=== PATIENT | female | born 1960 | race Caucasian/White ===

== ENCOUNTER 2016-11-24 07:25 | Day surgery (SDC) | payer BC ==
[2016-11-24] VITALS (8 sets, daily range): BP systolic 102–124; BP diastolic 54–74
[~2016-11-24] VITALS: Ht 162.6 cm; Wt 80.3 kg
[~2016-11-24 07:25] MED LIST: ALEVE220 MG PO; CIPROFLOXACN500 MG PO; ESTRACE2 M1 OR; HEMORRHOIDAL RE; LISINOP/HCTZ1 TAB PO; LISINOPRIL10 MG PO; MAXZIDE-2537.5 MG/TA PO; NEXIUM40 M1 PO; OMEPRAZOLE10 MG PO; PRILOSEC20 MG/CAP PO; PROCTOFOAM1 AER RE; STOOL SOFTE1 OR; XANAX0.5 MG PO
[2016-11-24] MEDS ORDERED: ATENOLOL25 MG PO (07:39)
[2016-11-24] MEDS ORDERED: PERCOCET 5/325M1 TAB PO (11:38)
--- NOTE | 2016-11-24 13:02 | NUR ---
REPORT RECEIVED FROM LEXIE IN OR, PT ARRIVED ON UNIT VIA STRETCHER AND TRANSFERRED TO BED, ALERT AND ORIENTED X 3, C/O MID-STERNAL PAIN AT THIS TIME. PUNCTURES X 4 TO ABD WITH DRESSINGS CDI, ORIENTED TO ROOM AND CAPRICE ONTIVEROS, VITAL SIGNS BEING MEASURED.
--- NOTE | 2016-11-24 18:02 | NUR ---
DR BOGGS REPORTED HE WILL ENTER D/C ORDERS FOR PT TO GO HOME ON 12/26/14.
--- NOTE | 2016-11-24 19:15 | NUR ---
PATIENT RESTING IN BED AT THIS TIME-AWAKE ALERT AND ORIENTEDX3. PATIENT WITH IV SITE TO LEFT AC-SITE APPEARS HEALTHY AT THIS TIME. PATIENT C/O SORE SCRATCHY THROAT-PROVIDED WITH ICE CHIPS AND WELSH ICE FOR COMFORT. MULTIPLE VISITORS AT BEDSIDE. SAFETY PRECAUTIONS REINFORCED. CALL LIGHT IN REACH. WILL CONT TO MONITOR.
--- NOTE | 2016-11-24 21:30 | NUR ---
PATIENT C/O POST-OP PAIN 5/10-MEDICATED WITH PERCOCET 5/325MG PO FOR PAIN. PATIENT RESTING IN BED. PATIENT WITH DRESSINGX4 TO ABD-CLEAN DRY AND INTACT WITH NO DRAINAGE NOTED. PATIENT DENIES ANY DIFFICULTY WITH VOIDING BUT IS CURRENTLY TAKING CIPRO PO FOR UTI. STATES THAT SHE HAD BM BEFORE COMING TO THE HOSPITAL. ABD IS SOFT WITH BS PRESENT. PATIENT TAKING PO FLUIDS WELL. TOLERATED WELL. SAFETY PRECAUTIONS REINFORCED. CALL LIGHT IN REACH. WILL CONT TO MONITOR.
--- NOTE | 2016-11-24 23:52 | NUR ---
APPEARS SLEEPING WITH SISTER AT BEDSIDE RESTING ON COT PROVIDED. CALL LIGHT IN REACH. WILL CONT TO MONITOR.
[2016-11-25 00:31] VITALS: BP 91/54
--- NOTE | 2016-11-25 04:13 | NUR ---
PATIENT AWAKE-STATES THAT SHE HASN'T SLEPT MUCH TONIGHT-ON AND OFF. PATIENT PROVIDED WOITH JELLO AND SOFT DRINK PER PATIENT REQUEST. CALL LIGHT IN REACH. WILL CONT TO MONITOR.
[2016-11-25 04:25] VITALS: BP 88/54
[2016-11-25 06:01] VITALS: BP 99/59
--- NOTE | 2016-11-25 07:00 | NUR ---
SHIFT CHANGE REPORT FROM DIANNA PT AWAKE, ALERT, ORIENTED AND TALKATIVE, C/O MILD SORE PAIN TO ABDOMEN WHICH IS BEING CONTROLLED BY ANALGESICS, STATED SHE HAD A RESTLESS NIGHT AND IS READY TO GO HOME TODAY.
[2016-11-25 08:43] VITALS: BP 106/68
--- NOTE | 2016-11-25 10:28 | NUR ---
Discharge instructions given. Patient verbalizes understanding of same. Discharged in stable condition via Wheelchair to Home with family. All belongings sent with pt.
== END 2016-11-25 10:24 | disposition home or self-care (01) | DRG 419 ==
LOC: ORM 07:25 → MS2 12:13 → ORM 11-25 10:24
PROVIDERS: ATTEND Surgery
PROC: 0FT44ZZ Resection of Gallbladder, Percutaneous Endoscopic Approach (ICD-10-PCS; principal; 2016-11-24)
DX: K81.1 Chronic cholecystitis (principal); I10 Essential (primary) hypertension
CPT/HCPCS: J2710

== ENCOUNTER 2018-01-18 05:59 | Day surgery (SDC) | payer BC ==
[~2018-01-18] VITALS: Ht 162.6 cm; Wt 86.2 kg
[~2018-01-18 05:59] MED LIST changes: +ATENOLOL25 MG PO; +CALCIUM + D PO; +PERCOCET 5/325M1 TAB PO
[2018-01-18 08:41] VITALS: BP 141/65
== END 2018-01-18 08:09 | disposition home or self-care (01) | DRG 951 ==
LOC: ENDO 05:59
PROVIDERS: ATTEND Surgery
PROC: 0DJD8ZZ Inspection of Lower Intestinal Tract, Via Natural or Artificial Opening Endoscopic (ICD-10-PCS; principal; 2018-01-18)
DX: Z12.11 Encounter for screening for malignant neoplasm of colon (principal); K57.30 Diverticulosis of large intestine without perforation or abscess without bleeding; K64.4 Residual hemorrhoidal skin tags; K64.8 Other hemorrhoids; K21.9 Gastro-esophageal reflux disease without esophagitis; I10 Essential (primary) hypertension; Z80.0 Family history of malignant neoplasm of digestive organs

== ENCOUNTER 2018-02-14 10:21 | Emergency (ER) | payer BC ==
[~2018-02-14] VITALS: Ht 162.6 cm; Wt 87.0 kg
[2018-02-14] MEDS ORDERED: VALTREX1 GM PO (10:52)
[2018-02-14] MEDS ORDERED: PREDNISONE10 MG PO (10:52)
[2018-02-14] MEDS ORDERED: OXYCOD/APAP1 TA1 PO (11:07)
[2018-02-14] MEDS ORDERED: FLEXERIL PO (11:09)
[2018-02-14 11:18] VITALS: BP 141/75
== END 2018-02-14 11:37 | disposition home or self-care (01) | DRG 74 ==
LOC: ED 10:21
DX: G51.0 Bell's palsy (principal); S16.1XXA Strain of muscle, fascia and tendon at neck level, initial encounter; X58.XXXA Exposure to other specified factors, initial encounter; Y92.009 Unspecified place in unspecified non-institutional (private) residence as the place of occurrence of the external cause

== ENCOUNTER 2018-06-14 10:21 | Observation (INO) | payer BC ==
[~2018-06-14] VITALS: Ht 162.6 cm; Wt 89.5 kg
[~2018-06-14 10:21] MED LIST changes: +FLEXERIL PO; +OXYCOD/APAP1 TA1 PO; +PREDNISONE10 MG PO; +VALTREX1 GM PO
--- NOTE | 2018-06-14 10:22 | NUR ---
PT TO ROOM VIA WHEELCHAIR.
--- NOTE | 2018-06-14 10:31 | NUR ---
PT STATES HAS BEEN HAVING LEFT SHOULDER AND LEFT ARM PAIN FOR TWO WEEKS, HURTS WORSE WITH UP AND DOWN MOVEMENT. THINKS IT MAY BE ROTATOR CUFF OR ARTHRITIS ACTING UP.
--- NOTE | 2018-06-14 10:40 | NUR ---
AFTER TAKING NITRO SL, PTS BLOOD PRESSURE DROPPED.
--- NOTE | 2018-06-14 10:45 | NUR ---
PT BLOOD PRESSURE DROPPED TO 63/47, NOTIFIED, PT PLACED IN [place], FLUIDS INFUSING, COOL CLOTH GIVEN.
[2018-06-14 10:51] LABS: HEMATOCRIT 45.9 % (37.0-47.0); HEMOGLOBIN 14.8 g/dl (12.0-16.0); IMMATURE GRANULOCYTES 0.4 % (0.0-5.0); MEAN CELL VOLUME 93.5 fL CALC (80.0-100.0); MEAN CORPUSCULAR HGB 30.1 pG CALC (26.0-32.0); MEAN CORPUSCULAR HGB CONC 32.2 g/L CALC (32.0-36.0); NEUT# 6.61 thou/uL (2.00-7.15); RED BLOOD COUNT 4.91 mill/uL (4.20-5.60); RED CELL DISTRI WIDTH 13.2 % (11.5-15.5)
[2018-06-14] MEDS ORDERED: CALCIU1 PO (10:54)
--- NOTE | 2018-06-14 10:59 | NUR ---
BLOOD PRESSURE INCREASING. PT STATES FEELS A LITTLE BETTER.
[2018-06-14 11:15] LABS: ANION GAP 17 (6-22 (CALC)); BUN 25 mg/dL (7-17); BUN/CREATININE RATIO 22 (12-20 (CALC)); CARBON DIOXIDE 28 mmol/l (22-30); CHLORIDE 99 mmol/l (95-108); CREATININE 1.1 mg/dL (0.5-1.0); GFR 51 ML/MIN (>=60 (CALC)); GFR FOR AFR.AMER. > 60 ML/MIN (>=60 (CALC)); POTASSIUM 4.4 mmol/l (3.5-5.1); SODIUM 140 mmol/l (137-146)
--- NOTE | 2018-06-14 11:26 | NUR ---
PT STATES FEELS MUCH BETTER, BLOOD PRESSURE HAS IMPROVED. NO CHEST PAIN AT THIS TIME
--- NOTE | 2018-06-14 12:15 | NUR ---
REPORT GIVEN TO MED SURG
--- NOTE | 2018-06-14 12:35 | NUR ---
PT TAKEN TO FLOOR PER W/C AND TELEMENTRY
--- NOTE | 2018-06-14 12:38 | NUR ---
PT ARRIVED TO FLOOR VIA W/C ACCOMPANIED BY ONE ER NURSE AND A FAMILY MEMBER; PT AMBULATED WITH STEADY GAIT TO THE RESTROOM; VOIDED 200CC CLEAR, YELLOW URINE; VITALS AND WT OBTAINED; A/O X4; C/O OF NO PAIN AT THE MOMENT; SKIN INTACT; LAST BM 06/14/18; BRACE TO RT ANKLE, STATES THINKS ITS "HEEL SPUR" STARTED WEARING BRACE THREE WEEKS AGO; LIVES ON A RANCH, SADDLE HOURSE DAILY; TELE IN PLACE; #20 LAC PATENT, SL; MEDICATED PER EMAR; SITTING UP SIDE OF BED EATING LUNCH AND VISITING WITH HER DAUGHTER; CALL ONTIVEROS IN REACH; SAFETY PRECAUTION REINFORCE; WILL CONTNUE TO MONITOR.
[2018-06-14 12:51] VITALS: BP 130/81
--- NOTE | 2018-06-14 15:39 | NUR ---
PT SITTING UP IN BED WATCHING TV; NO S/S OF DISTRESS NOTED; VOICE NO CONCERNS; DENIES ANY NEEDS AT THIS TIME; CALL ONTIVEROS IN REACH;
[2018-06-14 16:00] VITALS: BP 106/73
--- NOTE | 2018-06-14 19:40 | NUR ---
REPORT RECEIVED FROM KAITLYNN RED. PT RESTING IN BED, ALERT AND ORIENTED. PT FAMILY VISITING AT BEDSIDE. PT DENIES ANY CHEST PAIN, BUT STILL HAS LEFT SHOULDER PAIN. CALL LIGHT WITH IN REACH WILL CONTINUE TO MONITOR
[2018-06-14 20:00] VITALS: BP 107/76
--- NOTE | 2018-06-14 23:10 | NUR ---
PT RESTING IN BED. PT STATES HER PAIN IN HER LEFT SHOULDER IS FEELING A LITTLE BETTER AFTER REPOSITIONING. BROUGHT PT A WARM PACK. SAFETY PRECAUTIONS IN PLACE WILL CONTINUE TO MONITOR.
[2018-06-15 00:25] VITALS: BP 97/56
--- NOTE | 2018-06-15 03:35 | NUR ---
PT RESTING IN BED ALERT AND ORIENTED. PT STATES "I'M GOOD, I JUST GOT BACK IN BED FROM THE BATHROOM, GOING TO GO BACK TO SLEEP". CALL ONTIVEROS WITHIN REACH. WILL CONTINUE TO MONITOR.
--- NOTE | 2018-06-15 04:30 | NUR ---
PT REPORT HAVING PAIN OF A 9 OUT OF 10 ON THE PAIN SCALE. PT TO BE MEDICATED PER EMAR ORDERS. WILL CONTINUE TO MONITOR.
[2018-06-15 04:50] VITALS: BP 94/58
[2018-06-15 06:26] LABS: HEMATOCRIT 41.4 % (37.0-47.0); HEMOGLOBIN 13.1 g/dl (12.0-16.0); IMMATURE GRANULOCYTES 0.3 % (0.0-5.0); MEAN CELL VOLUME 94.1 fL CALC (80.0-100.0); MEAN CORPUSCULAR HGB 29.8 pG CALC (26.0-32.0); MEAN CORPUSCULAR HGB CONC 31.6 g/L CALC (32.0-36.0); NEUT# 3.52 thou/uL (2.00-7.15); RED BLOOD COUNT 4.4 mill/uL (4.20-5.60); RED CELL DISTRI WIDTH 13.2 % (11.5-15.5)
[2018-06-15 06:46] LABS: ALBUMIN 3.4 g/dL (3.2-5.0); BILIRUBIN, TOTAL 0.3 mg/dL (0.0-1.4); CREATININE 1.2 mg/dL (0.5-1.0); MAGNESIUM 1.7 mg/dL (1.6-2.3); POTASSIUM 3.8 mmol/l (3.5-5.1); TOTAL PROTEIN 6.3 g/dL (6.3-8.2)
[2018-06-15 07:42] VITALS: BP 113/74
--- NOTE | 2018-06-15 07:43 | NUR ---
REPORT RECEIVED FROM MARLENA US; ASSESSMENT COMPLETED; PT LAYING IN BED AWAKE, ALERT; ANXIOUS TO GO HOME; RESP EVEN AND UNLABORED ON ROOM AIR; TELE IN PLACE; IV FLUSHED WELL, SITE APPEARS HEALTHY; VOIDED 200CC CLEAR, URINE; C/O OF MILD PAIN TO LT SHOULDER; VOICE NO OTHER CONCERNS; CALL ONTIVEROS IN REACH. SAFETY PRECAUTION REINFORCE;
--- NOTE | 2018-06-15 09:21 | NUR ---
C/O OF LT SHOULDER PAIN 8/10 PAIN SCALE; MEDICATED PER EMAR; NO S/S OF DISTRESS NOTED.
[2018-06-15 11:15] VITALS: BP 115/68
--- NOTE | 2018-06-15 11:33 | NUR ---
PT LAYING IN BED TALKING ON THE PHONE, [facility]A OBTAINED AND SENT TO LAB; CALL [facility], THEY ARE BUSY WITH A PT AT THE MOMENT, WILL CALL WHEN READY FOR MS MAURICIO;
--- NOTE | 2018-06-15 12:13 | NUR ---
DR HOWELL AT BEDSIDE
[2018-06-15 12:40] LABS: URINE BILIRUBIN - DIPSTICK NEGATIVE (NEGATIVE); URINE BLOOD DIPSTICK NEGATIVE (NEGATIVE); URINE COLOR YELLOW; URINE GLUCOSE - DIPSTICK NEGATIVE (NEGATIVE); URINE KETONE NEGATIVE (NEGATIVE); URINE LEUK ESTERASE NEGATIVE (Negative); URINE NITRITE - DIPSTICK NEGATIVE (Negative); URINE PROTEIN - DIPSTICK NEGATIVE (NEG-TRACE); URINE SPECIFIC GRAVITY 1.015; URINE UROBILINOGEN - DIPSTICK 0.2 E.U./dL (0.2)
[2018-06-15 12:41] LABS: URINE CLARITY CLEAR
--- NOTE | 2018-06-15 12:50 | NUR ---
PT GOING DOWN FOR US VIA W/C ACCOMPANIED BY A VOLUNTEER IN STABLE CONDITION
--- NOTE | 2018-06-15 14:29 | NUR ---
PT AMBULATORY IN ROOM; D/C INSTRUCTIONS GIVEN; VERBALIZE UNDERSTANDING; IV REMOVED, CATH INTACT; TELE D/C; PT STATES SHE WILL DRIVE SELF HOME; TOLD HER TO CALL WHEN READY FOR W/C
--- NOTE | 2018-06-15 14:50 | NUR ---
Discharge instructions given. Patient verbalizes understanding of same. Discharged in stable condition via Wheelchair to Home with volunteer. All belongings sent with pt.
== END 2018-06-15 14:46 | disposition home or self-care (01) | DRG 313 ==
LOC: ED 10:21 → ED-I 11:20 → ED 12:05 → MS2 12:06
PROVIDERS: Family Medicine; ADMIT Internal Medicine Nephrology; ATTEND Internal Medicine Nephrology
DX: R07.89 Other chest pain (principal); N18.3 Chronic kidney disease, stage 3 (moderate); T39.395A Adverse effect of other nonsteroidal anti-inflammatory drugs [NSAID], initial encounter; R31.21 Asymptomatic microscopic hematuria; I10 Essential (primary) hypertension; E55.9 Vitamin D deficiency, unspecified; K21.9 Gastro-esophageal reflux disease without esophagitis; E66.9 Obesity, unspecified; F17.210 Nicotine dependence, cigarettes, uncomplicated; M19.012 Primary osteoarthritis, left shoulder; M19.032 Primary osteoarthritis, left wrist; M19.071 Primary osteoarthritis, right ankle and foot; Z68.33 Body mass index [BMI] 33.0-33.9, adult
CPT/HCPCS: G0378; J1650

== ENCOUNTER 2018-11-03 14:32 | Emergency (ER) | payer BC ==
[~2018-11-03] VITALS: Ht 162.6 cm; Wt 80.0 kg
[~2018-11-03 14:32] MED LIST changes: +CALCIU1 PO
[2018-11-03 15:42] LABS: URINE BILIRUBIN - DIPSTICK NEGATIVE (NEGATIVE); URINE BLOOD DIPSTICK TRACE-LYSED (NEGATIVE); URINE COLOR YELLOW; URINE GLUCOSE - DIPSTICK NEGATIVE (NEGATIVE); URINE KETONE NEGATIVE (NEGATIVE); URINE LEUK ESTERASE NEGATIVE (NEGATIVE); URINE NITRITE - DIPSTICK NEGATIVE (Negative); URINE PROTEIN - DIPSTICK NEGATIVE (NEG-TRACE); URINE SPECIFIC GRAVITY 1.025; URINE UROBILINOGEN - DIPSTICK 0.2 E.U./dL (0.2)
[2018-11-03 15:43] LABS: HEMATOCRIT 42.2 % (37.0-47.0); HEMOGLOBIN 13.6 g/dl (12.0-16.0); IMMATURE GRANULOCYTES 0.3 % (0.0-5.0); MEAN CORPUSCULAR HGB 30.3 pG CALC (26.0-32.0); MEAN CORPUSCULAR HGB CONC 32.2 g/L CALC (32.0-36.0); NEUT# 5.15 thou/uL (2.00-7.15); RED BLOOD COUNT 4.49 mill/uL (4.20-5.60); RED CELL DISTRI WIDTH 13.2 % (11.5-15.5)
[2018-11-03] MEDS ORDERED: STOOL SOFTENER100 MG PO (15:43)
[2018-11-03] MEDS ORDERED: ALPRAZOLAM0.5 MG PO (15:44)
[2018-11-03 16:05] LABS: ALBUMIN 3.8 g/dL (3.2-5.0); BILIRUBIN, TOTAL 0.3 mg/dL (0.0-1.4); CREATININE 1.3 mg/dL (0.5-1.0); POTASSIUM 3.9 mmol/l (3.5-5.1); TOTAL PROTEIN 7.2 g/dL (6.3-8.2)
[2018-11-03] MEDS ORDERED: ONDANSETRON4 MG PO (16:12)
[2018-11-03] MEDS ORDERED: METRONIDAZOL500 MG PO (16:12)
[2018-11-03] MEDS ORDERED: CIPROFLOXACIN500 M1 PO (16:12)
[2018-11-03 16:21] VITALS: BP 145/97
== END 2018-11-03 16:39 | disposition home or self-care (01) | DRG 392 ==
LOC: ED 14:32
PROVIDERS: Family Medicine
DX: K57.32 Diverticulitis of large intestine without perforation or abscess without bleeding (principal); I10 Essential (primary) hypertension; F17.210 Nicotine dependence, cigarettes, uncomplicated

== ENCOUNTER 2018-12-21 12:30 | Emergency (ER) | payer OTHER, BC ==
[~2018-12-21] VITALS: Ht 162.6 cm; Wt 87.7 kg
[~2018-12-21 12:30] MED LIST changes: +ALPRAZOLAM0.5 MG PO; +CIPROFLOXACIN500 M1 PO; +METRONIDAZOL500 MG PO; +ONDANSETRON4 MG PO; +STOOL SOFTENER100 MG PO
[2018-12-21] MEDS ORDERED: ALPRAZOLAM0.5 M2 PO (14:03)
[2018-12-21] MEDS ORDERED: OMEPRAZOLE DR40 MG PO (14:04)
[2018-12-21] MEDS ORDERED: COLACE100 MG PO (14:05)
[2018-12-21] MEDS ORDERED: CYCLOBENZAPRINE5 MG PO (15:08)
[2018-12-21 15:16] VITALS: BP 104/72
== END 2018-12-21 15:16 | disposition home or self-care (01) | DRG 552 ==
LOC: ED 12:30
DX: S16.1XXA Strain of muscle, fascia and tendon at neck level, initial encounter (principal); S29.012A Strain of muscle and tendon of back wall of thorax, initial encounter; V49.50XA Passenger injured in collision with unspecified motor vehicles in traffic accident, initial encounter; Y92.410 Unspecified street and highway as the place of occurrence of the external cause; I12.9 Hypertensive chronic kidney disease with stage 1 through stage 4 chronic kidney disease, or unspecified chronic kidney disease; N18.9 Chronic kidney disease, unspecified; G51.0 Bell's palsy; F41.9 Anxiety disorder, unspecified